=== PATIENT | female | born 1985 | race Caucasian/White ===

== ENCOUNTER 2021-04-15 19:20 | Emergency (ER) | payer OTHER, SELFPAY ==
--- NOTE | ~2021-04-15 | XR_ITS ---
EXAMINATION: XR elbow RT min 3V DATE: 04/15/2021 20:06 INDICATION: Anterior right elbow pain post fall TECHNIQUE: Anteroposterior, two oblique and lateral views of the right elbow were obtained. COMPARISON: None. FINDINGS: Nondisplaced intra-articular fracture at the right radial head. Alignment remains essentially anatomi c with no significant fracture gap or incongruity at the articular surface. No other fractures identi fied. Right elbow joint effusion effusion. Joint spaces and soft tissues are otherwise normal. IMPRESSION: 1. Nondisplaced intra-articular fracture at the head of the right radius. Reviewed, dictated and finalized at location A.
[2021-04-15 19:46] VITALS: BP 129/78; PULSE 73; RESP 18; TEMP 36.9; O2SAT 100
--- NOTE | 2021-04-15 22:17 | ED.UPPEXIN ---
HPI - Extremity Injury (Upper) General Chief Complaint: Extremity Injury, Upper Stated Complaint: fall/ arm injury Time Seen by Provider: 04/15/21 21:14 Source: patient Mode of arrival: ambulatory Limitations: no limitations History of Present Illness HPI narrative: Patient is a 35-year-old female complaining of right elbow pain after she slipped and fell prior to arrival. Patient denies any head, neck, back, chest, pelvis or any other extremity pain/injury. Patient states that her pain currently is mild and does not want anything for pain. Place: outdoors Relieving factors: immobilization Exacerbating factors: movement of extremity Related Data Home Medications Medication Instructions Recorded Confirmed norethindrone-e.estradiol-iron tablet 04/15/21 [08/15 (28)] Allergies Allergy/AdvReac Type Severity Reaction Status Date / Time No Known Allergies Allergy Verified 04/15/21 22:42 Review of Systems Review of Systems: All systems reviewed & are unremarkable except as noted in HPI and below PMFSH Social History Social History Alcohol intake: never Comments Past medical history: None Family history: Unknown Social history: Non-smoker no EtOH or drug use Course Vital Signs Vital signs: Vital Signs Temperature 36.9 C 04/15/21 19:46 Pulse Rate 73 04/15/21 19:46 Respiratory Rate 18 04/15/21 19:46 Blood Pressure 129/78 04/15/21 19:46 Pulse Oximetry 100 04/15/21 19:46 Temperature 36.9 C 04/15/21 19:46 Pulse Rate 73 04/15/21 19:46 Respiratory Rate 18 04/15/21 19:46 Blood Pressure 129/78 04/15/21 19:46 Pulse Oximetry 100 04/15/21 19:46 MDM - Extremity Injury (Upper) [facility] [place] Narrative Medical decision making narrative: X-ray showing radial head fracture nondisplaced, advised patient to call Ortho tomorrow for follow-up. Differential Diagnosis Differential diagnosis: Likely fracture of humerus and other (Strain, sprain, contusion) Discharge Plan Discharge Clinical Impression: Closed fracture of radial head Qualifiers: Encounter type: initial encounter Fracture alignment: nondisplaced Laterality: right Qualified Code(s): S52.124A - Nondisplaced fracture of head of right radius, initial encounter for closed fracture Patient Disposition: Home, Self-Care Condition: Improved Instructions: Elbow Fracture (ED) Prescriptions: New hydrocodone-acetaminophen 5-325 mg tablet 1 tablet PO Q6H PRN (Reason: pain) Qty: 10 RF: 0 naproxen [Naprosyn] 500 mg tablet 500 mg PO BID PRN (Reason: pain) Qty: 10 RF: 0 No Action norethindrone-e.estradiol-iron [June FE 08/15 (28)] 1 mg-20 mcg (21)/75 mg (7) tablet RF: 0 Follow-up/Referrals: Jamie,MD Villal[place] ([place]) [Primary Care Provider] - Live Payton MD [Physician] - 04/16/21 (Call for an appointment) Time of Disposition: 23:18
[2021-04-15] MEDS: HYDROcodone/acetaminophen (*CRX) 5-325 MG TABLET 1 TAB PO (22:44)
[2021-04-15] MEDS: KETOROLAC 30 MG/ML VIAL (*BKC) IM (22:44)
== END 2021-04-15 23:28 | disposition home or self-care (01) ==
PROVIDERS: Emergency Provider Emergency Medicine; PCP Internal Medicine
DX: S52.124A Nondisplaced fracture of head of right radius, initial encounter for closed fracture (principal); W01.0XXA Fall on same level from slipping, tripping and stumbling without subsequent striking against object, initial encounter
CPT/HCPCS: 29105; 73080; 96372; 99284; A9270; J1885

== ENCOUNTER 2024-01-18 08:13 | Outpatient (CLI) | payer BC, SELFPAY ==
--- NOTE | ~2024-01-18 | US_ITS ---
Limited Abdominal Sonogram: Real-time sonographic imaging of the right upper quadrant was performed. Clinical History: Abnormal liver enzymes Findings: The liver appears mildly echogenic, with no evidence of mass lesion or bile duct dilatatio n. Main portal vein demonstrates normal direction of flow. The gallbladder is well distended, and adj acent echogenic, shadowing gallstone. No gallbladder wall thickening evident. The common bile duct me asures 6 mm. The visualized pancreas, aorta, and IVC are unremarkable. Impression: Probable fatty infiltration of liver. Cholelithiasis. Reviewed, dictated and finalized at location M. Impression: Probable fatty infiltration of liver. Cholelithiasis.
== END 2024-01-18 08:14 ==
PROVIDERS: PCP Internal Medicine; Visit Provider Internal Medicine
DX: R74.8 Abnormal levels of other serum enzymes (principal); K80.20 Calculus of gallbladder without cholecystitis without obstruction
CPT/HCPCS: 76705